=== PATIENT | male | born 1945 | race Caucasian/White ===

== ENCOUNTER 2017-01-26 09:59 | Outpatient (CLI) | payer BC | END 2017-01-26 10:00 | disposition home or self-care (01) | LOC: LAB.WCP 09:59 | PROVIDERS: ATTEND Family Medicine | DX: E03.9 Hypothyroidism, unspecified (principal) | CPT/HCPCS: 36415; 84443 ==

== ENCOUNTER 2017-05-02 08:00 | Outpatient (CLI) | payer BC | END 2017-05-02 08:01 | disposition home or self-care (01) | LOC: LAB.WCP 08:00 | PROVIDERS: ATTEND Family Medicine | DX: N40.1 Benign prostatic hyperplasia with lower urinary tract symptoms (principal) | CPT/HCPCS: 36415; 84153 ==

== ENCOUNTER 2017-05-05 10:20 | Outpatient (CLI) | payer BC ==
[2017-05-05 13:04] LABS: BILIRUBIN,URINE NEGATIVE (NEGATIVE); GLUCOSE, URINE (UA) NEGATIVE (NEGATIVE); KETONES,URINE (UA) NEGATIVE (NEGATIVE); LEUKOCYTE ESTERASE, URINE NEGATIVE (NEGATIVE); NITRITE,URINE NEGATIVE (NEGATIVE); OCCULT BLOOD,URINE TRACE-LYSE (NEGATIVE); PROTEIN,URINE NEGATIVE (NEGATIVE); UROBILINOGEN,URINE 0.2 (NORMAL) E.U./dL (NORMAL)
[2017-05-05 13:08] LABS: PSA FREE 0.59 ng/mL (0.16-2.81)
[2017-05-05 13:09] LABS: PSA TOTAL 1.68 ng/mL (0.000-2.000)
[2017-05-05 13:12] LABS: BACTERIA,URINE Rare /HPF (None Seen); CLARITY,URINE CLEAR (CLEAR); MUCUS,URINE Moderate Strands; RBC,URINE 0-5 /HPF (0-5); SQUAMOUS EPITHELIAL CELL,UR FEW Squamous (<= Few)
[2017-05-05 13:22] LABS: ALBUMIN/GLOBULIN RATIO 1.4 (1.0-2.2); ALKALINE PHOSPHATASE 53 IU/L (42-121); ALT ALANINE AMINOTRANSFERASE 15 IU/L (10-60); AST ASPARTATE AMINOTRANSFERASE 23 IU/L (10-42); BILIRUBIN,TOTAL 0.8 mg/dL (0.2-1.0); BUN - BLOOD UREA NITROGEN 16 mg/dL (6-20); CALCIUM 9.2 mg/dL (8.5-10.3); CARBON DIOXIDE - CO2 26 mmol/L (21-32); CHLORIDE 105 mmol/L (101-111); CHOLESTEROL 160 mg/dL; GFR - MDRD 74 (>89); GLUCOSE 90 mg/dL (70-100); HDL CHOLESTEROL 54 mg/dL; LDL CHOLESTEROL,CALCULATED 91 mg/dL; LDL/HDL RATIO 1.7 (<3.6); SODIUM 136 mmol/L (135-145); TOTAL PROTEIN 6.8 g/dL (6.7-8.2); VLDL CHOLESTEROL 15 mg/dL
== END 2017-05-05 10:21 | disposition home or self-care (01) ==
LOC: LAB.WCP 10:20
PROVIDERS: ATTEND Family Medicine
DX: N40.1 Benign prostatic hyperplasia with lower urinary tract symptoms (principal); I25.10 Atherosclerotic heart disease of native coronary artery without angina pectoris; E03.9 Hypothyroidism, unspecified; E78.5 Hyperlipidemia, unspecified
CPT/HCPCS: 36415; 80053; 80061; 81001; 83721; 84154; 84443

== ENCOUNTER 2017-12-19 14:15 | Outpatient (CLI) | payer BC ==
[2017-12-19 19:54] LABS: BASOPHILS % (AUTO) 0.5 %; EOSINOPHILS # (AUTO) 0.1 10^3/uL (0.0-0.7); EOSINOPHILS % (AUTO) 1.8 %; HGB - HEMOGLOBIN 12.4 g/dL (14.0-18.0); LYMPHOCYTES # (AUTO) 2.2 10^3/uL (1.5-3.5); LYMPHOCYTES % (AUTO) 27.4 %; MEAN CORPUSCULAR HEMOGLOBIN 32.9 pg (27.0-31.0); MEAN CORPUSCULAR HGB CONC 34.4 g/dL (32.0-36.0); MEAN CORPUSCULAR VOLUME 95.5 fL (80.0-94.0); MEAN PLATELET VOLUME 8.6 fL (7.4-11.4); MONOCYTES # (AUTO) 0.7 10^3/uL (0.0-1.0); MONOCYTES % (AUTO) 8.6 %; NEUTROPHILS % (AUTO) 61.7 %; PLT - PLATELET COUNT 178 10^3/uL (130-450); RED BLOOD COUNT 3.76 10^6/uL (4.70-6.10); RED CELL DISTRIBUTION WIDTH 14.4 % (12.0-15.0); WHITE BLOOD COUNT 8.1 x10^3/uL (4.8-10.8)
[2017-12-20 17:23] LABS: % IRON SATURATION 25 % (20-50); IRON 91 ug/dL (45-182); TOTAL IRON BINDING CAPACITY 364 ug/dL (250-450); TRANSFERRIN 260 mg/dL (180-329)
== END 2017-12-19 14:16 | disposition home or self-care (01) ==
LOC: LAB.WCP 14:15
PROVIDERS: ATTEND Family Medicine
DX: K14.6 Glossodynia (principal); D64.9 Anemia, unspecified
CPT/HCPCS: 36415; 82607; 82728; 82746; 83540; 84466; 85025

== ENCOUNTER 2019-07-22 08:00 | Outpatient (CLI) | payer BC ==
[2019-07-22 13:21] LABS: BASOPHILS % (AUTO) 0.4 %; EOSINOPHILS # (AUTO) 0.1 10^3/uL (0.0-0.7); EOSINOPHILS % (AUTO) 1.5 %; HGB - HEMOGLOBIN 13.2 g/dL (14.0-18.0); LYMPHOCYTES # (AUTO) 1.7 10^3/uL (1.5-3.5); LYMPHOCYTES % (AUTO) 23.1 %; MEAN CORPUSCULAR HGB CONC 32.2 g/dL (32.0-36.0); MEAN CORPUSCULAR VOLUME 99.3 fL (80.0-94.0); MEAN PLATELET VOLUME 10.6 fL (7.4-11.4); MONOCYTES # (AUTO) 0.7 10^3/uL (0.0-1.0); MONOCYTES % (AUTO) 9.5 %; NEUTROPHILS # (AUTO) 4.7 10^3/uL (1.5-6.6); NEUTROPHILS % (AUTO) 65.1 %; PLT - PLATELET COUNT 175 10^3/uL (130-450); RED BLOOD COUNT 4.13 10^6/uL (4.70-6.10); RED CELL DISTRIBUTION WIDTH 14.2 % (12.0-15.0); WHITE BLOOD COUNT 7.2 x10^3/uL (4.8-10.8)
[2019-07-22 13:46] LABS: ALBUMIN 3.9 g/dL (3.2-5.5); ALBUMIN/GLOBULIN RATIO 1.3 (1.0-2.2); ALKALINE PHOSPHATASE 56 IU/L (42-121); ALT ALANINE AMINOTRANSFERASE 14 IU/L (10-60); AST ASPARTATE AMINOTRANSFERASE 20 IU/L (10-42); BILIRUBIN,TOTAL 0.7 mg/dL (0.2-1.0); BUN - BLOOD UREA NITROGEN 22 mg/dL (6-20); CALCIUM 9.3 mg/dL (8.5-10.3); CARBON DIOXIDE - CO2 27 mmol/L (21-32); CHLORIDE 104 mmol/L (101-111); CHOL/HDL RATIO 3.3 (<5.0); CHOLESTEROL 170 mg/dL; CREATININE 0.9 mg/dL (0.6-1.2); GLUCOSE 63 mg/dL (70-100); HDL CHOLESTEROL 51 mg/dL; LDL CHOLESTEROL,CALCULATED 107 mg/dL; LDL/HDL RATIO 2.1 (<3.6); SODIUM 137 mmol/L (135-145); TOTAL PROTEIN 6.8 g/dL (6.7-8.2); VLDL CHOLESTEROL 12 mg/dL
== END 2019-07-22 23:59 | disposition home or self-care (01) ==
LOC: LAB.WCP 08:00
PROVIDERS: ATTEND Physician Assistant Medical
DX: I25.10 Atherosclerotic heart disease of native coronary artery without angina pectoris (principal); E78.5 Hyperlipidemia, unspecified; Z12.5 Encounter for screening for malignant neoplasm of prostate
CPT/HCPCS: 36415; 80053; 80061; 83721; 84153; 84443; 85025

== ENCOUNTER 2019-08-27 14:02 | Outpatient (CLI) | payer BC | END 2019-08-27 14:03 | disposition home or self-care (01) | LOC: COV 14:02 | PROVIDERS: ATTEND Ophthalmology | DX: Z01.812 Encounter for preprocedural laboratory examination (principal); H25.9 Unspecified age-related cataract | CPT/HCPCS: 81599 ==

== ENCOUNTER 2019-08-29 07:24 | Day surgery (SDC) | payer BC ==
[~2019-08-29 07:24] MED LIST: BRIMONIDINE 0.2% OPHTH DROPS 5 ML ONE; BSS/LIDOCAINE/EPINEPHRINE 1 ML SYRINGE ONE; CYCLOPENTOLATE 1% OPHTH DROPS 2 ML ONE; KETOROLAC 0.45% OPHTH DROPS ONE; PHENYLEPHRINE 2.5% OPHTH 2 ML DROPS ONE; PROPARACAINE 0.5% OPHTH DROPS 15 ML ONE; TRIAMCIN/MOXIFLOX OPHTHALMIC 0.6 ML VIAL IO ONE; VANCOMYCIN OPHTHALMI 8MG/0.8ML 8 MG/0.8 ML SYRINGE IO ONE; timoloL maleate 0.5% OPHTH DROPS (10ML) ONE
[2019-08-29] MEDS ORDERED: LACTATED RINGERS 500 ML IV ONE (07:27)
--- NOTE | 2019-08-29 07:34 | ANESTHESIA ---
Pre-Anesthesia VS, & Labs - Diagnosis L senile cataract - Procedure L extraction cataract with IOL Vital Signs: Temp Pulse Resp BP Pulse Ox 36.2 C L 65 20 101/90 H 99 08/29/19 07:21 08/29/19 07:21 08/29/19 07:21 08/29/19 07:21 08/29/19 07:21 Height 5 ft 10.5 in Weight (kg) 76 kg - NPO >8 hours Home Medications and Allergies Latanoprost 0.005% Ophth Drops [Xalatan Ophth Drops] 1 drops OPTH QPM 03/19/14 Levothyroxine [Synthroid] 112 mcg PO QDAC 03/19/14 Metoprolol Succinate 25 mg PO DAILY 03/19/14 Multivit-Min/FA/Lycopene/Lut [Centrum Silver Tablet] 1 each PO DAILY 03/19/14 Simvastatin [Zocor] 40 mg PO DAILY 03/19/14 Timolol 0.25% Ophth Drops [Timoptic 0.25% Ophth Drops] 1 drops OPTH BID 03/19/14 Allergies/Adverse Reactions: Allergies Allergy/AdvReac Type Severity Reaction Status Date / Time No Known Drug Allergies Allergy Verified 03/20/14 08:44 Anes History & Medical History - Anesthetic History Anesthesia Complications: reports: No previous complications Family history of Anesthesia Complications: Denies Family history of Malignant Hyperthermia: Denies - Medical History Cardiovascular: reports: None Pulmonary: reports: None Gastrointestinal: reports: None Urinary: reports: Benign prostate hypertrophy, Nocturia Musculoskeletal: reports: None Endocrine/Autoimmune: reports: None Skin: reports: Psoriasis Smoking Status: Current every day smoker - Surgical History General: Colonoscopy Eyes Ears Nose Throat (EENT): Cataracts Exam General: Alert, Oriented x3, Cooperative Dental: Partials Upper Mouth Openin Fingerbreadth Neck Mobility: Normal Mallampati classification: II Thyromental Distance: greater than 6 cm Respiratory: Lungs clear, Normal breath sounds Cardiovascular: Regular rate Mental/Cognitive Status: Alert/Oriented X3, Normal for patient Cognitive Status: Within normal limits Plan Anesthesia Type: MAC Consent for Procedure(s) Verified and Reviewed: Yes Code Status: Attempt Resuscitation ASA classification: 2-Mild systemic disease Is this case an emergency?: No
[2019-08-29] MEDS ORDERED: LACTATED RINGERS 1,000 ML IV ONE (08:14)
[2019-08-29] MEDS ORDERED: BRIMONIDINE 0.2% OPHTH DROPS 5 ML OPTH ONE (08:17)
[2019-08-29] MEDS ORDERED: CHONDR SULF/HYALURONATE SYRINGE IO ONE (08:17)
[2019-08-29] MEDS ORDERED: EPINEPHrine 1 MG/ML AMP IVP ONE (08:17)
[2019-08-29] MEDS ORDERED: TIMOLOL 0.5% OPHTH DROPS OPTH ONE (08:18)
[2019-08-29] MEDS ORDERED: VANCOMYCIN OPHTHALMI 8MG/0.8ML 8 MG/0.8 ML SYRINGE IO ONE (08:18)
[2019-08-29] MEDS ORDERED: TRIAMCIN/MOXIFLOX OPHTHALMIC 0.6 ML VIAL IO ONE (08:18)
[2019-08-29] MEDS ORDERED: BSS/LIDOCAINE/EPINEPHRINE 1 ML SYRINGE IO ONE (08:18)
[2019-08-29 08:33] VITALS: BP 115/65
--- NOTE | 2019-08-29 09:40 | OPERATIVE REPORT ---
DATE OF SERVICE: 08/29/2019 Physician: Juanito Us MD PREOPERATIVE DIAGNOSIS: Visually significant cataract, left eye. Cataract surgery was performed on the right eye on 03/06/2014. POSTOPERATIVE DIAGNOSIS: Visually significant cataract, left eye. Cataract surgery was performed on the right eye on 03/06/2014. PROCEDURE: Phacoemulsification with posterior chamber intraocular lens implant, left eye. SURGEON: Juanito Us MD ANESTHESIA: Monitored anesthesia care. COMPLICATIONS: None. OPERATIVE INDICATIONS: This is a 74-year-old man with progressive vision loss in the left eye due to 3+ nuclear sclerotic, 1-2+ posterior subcapsular and vacuolar cataract. Best corrected visual acuit y was 20/50, with glare to 20/400 in the left eye. Indications for surgery are overall decrease in v ision, difficulty seeing street signs, difficulty driving in low light or at night, difficulty drivin g at night because lights from other vehicles and/or street lights. He was consented at length jane rning risks and benefits of cataract surgery, after which he expressed a desire to proceed with surge ry. OPERATIVE PROCEDURE: Patient was taken to OR #3 and placed under monitored anesthesia care. A surgi zo timeout was conducted confirming correct patient, correct procedure, and correct surgical site. He was given topical anesthesia, and prepped and draped in the usual sterile fashion. The eye was en tered at the 6 and 3 o'clock positions. Intracameral Shugarcaine was injected into the anterior georges ronaldo, followed by Viscoat. A continuous-tear curvilinear capsulorrhexis was performed. The nucleus w as hydrodissected and phacoemulsified. Cortex was evacuated using automated infusion and aspiration. Provisc was injected in the capsular bag, and a 19.5 diopter intraocular lens inserted in the bag. Infusion and aspiration was used to evacuate the viscoelastic materials. The eye was inflated to ph ysiologic pressure using balanced salt solution and found to be watertight. Approximately 0.25 mL of a mixture of triamcinolone, moxifloxacin was injected transsclerally into the vitreous in the infero temporal quadrant. An additional 0.55 mL of a mixture of triamcinolone, moxifloxacin and vancomycin was injected subconjunctivally in the superior quadrant for infection and inflammation prophylaxis. Wound integrity was checked with Weck-Claudette sponges. Patient was taken from the operating room in good condition and given postoperative instructions. TD: 08/29/2019 08:19
== END 2019-08-29 07:25 | disposition home or self-care (01) ==
LOC: SDS 07:24
PROVIDERS: ATTEND Ophthalmology
DX: H25.812 Combined forms of age-related cataract, left eye (principal); I10 Essential (primary) hypertension; E03.9 Hypothyroidism, unspecified; H35.3130 Nonexudative age-related macular degeneration, bilateral, stage unspecified; N40.1 Benign prostatic hyperplasia with lower urinary tract symptoms; R35.1 Nocturia; Z98.41 Cataract extraction status, right eye; Z79.899 Other long term (current) drug therapy
CPT/HCPCS: 66984; A9270; J3490; J7120; V2632

== ENCOUNTER 2019-12-28 16:27 | Outpatient (CLI) | payer BC ==
--- NOTE | 2019-12-28 18:42 | Ultrasound Report ---
PROCEDURE: Retroperitoneal INDICATIONS: KIDNEY MASS TECHNIQUE: Real-time scanning was performed of the retroperitoneal organs, with image documentation. COMPARISON: None. FINDINGS: Kidneys: Kidneys are normal in size. Right kidney measures 10.9 cm long; left kidney measures 10.4 cm long. Right renal cortical thickness is 1.2 cm; left renal cortical thickness is 1 cm. No solid masses, hydronephrosis, or nephrolithiasis. Bilateral simple appearing renal cysts are seen. The largest is seen on the right measuring 3.5 x 2.9 x 2.8 cm. The prevoid bladder volume is 87 cc. The post void bladder volume is 30 cc. Both ureteral jets can be seen. Miscellaneous: No free abdominal fluid. The prostate measures up to 5 cm. Calcifications can be see n within the prostate. IMPRESSION: Simple appearing renal cysts, without suspicious solid masses involving either kidney. No hydronephrosis is seen on either side. Reviewed by: Javi Handley MD on 12/28/2019 5:41 PM ADELA Approved by: Javi Handley MD on 12/28/2019 5:41 PM ADELA Station ID: [id number]
== END 2019-12-28 16:28 | disposition home or self-care (01) ==
LOC: DI 16:27
PROVIDERS: ATTEND Physician Assistant Medical
DX: N28.1 Cyst of kidney, acquired (principal)
CPT/HCPCS: 76770

== ENCOUNTER 2020-01-08 07:55 | Outpatient (CLI) | payer BC ==
--- NOTE | 2020-01-08 16:53 | XRAY Report ---
PROCEDURE: Shoulder 3 View RT INDICATIONS: RIGHT SHOULDER IMPINGEMENT SYNDROME TECHNIQUE: 3 views of the shoulder were acquired. COMPARISON: None. FINDINGS: Bones: No fractures or dislocations. There is moderate acromioclavicular joint degeneration includin g inferior osteophytosis. No suspicious bony lesions. Visualized ribs appear intact. Soft tissues: No suspicious soft tissue calcifications. IMPRESSION: 1. Moderate acromioclavicular joint generation. Reviewed by: Yosi Christianson MD on 01/08/2020 3:52 PM AKDT Approved by: Yosi Christianson MD on 01/08/2020 3:52 PM AKDT Station ID: [id number]
== END 2020-01-08 07:56 | disposition home or self-care (01) ==
LOC: DI.WCP 07:55
PROVIDERS: ATTEND Physician Assistant Medical
DX: M19.011 Primary osteoarthritis, right shoulder (principal)

== ENCOUNTER 2020-03-30 16:40 | Outpatient (CLI) | payer BC | END 2020-03-30 23:59 | disposition home or self-care (01) | LOC: LAB.R 16:40 | PROVIDERS: ATTEND Family Medicine | DX: R31.9 Hematuria, unspecified (principal) | CPT/HCPCS: 87086 ==

== ENCOUNTER 2020-08-28 08:47 | Outpatient (CLI) | payer BC ==
[2020-08-28 12:05] LABS: BASOPHILS % (AUTO) 0.5 %; EOSINOPHILS # (AUTO) 0.2 10^3/uL (0.0-0.7); HCT - HEMATOCRIT 44.2 % (42.0-52.0); HGB - HEMOGLOBIN 14.7 g/dL (14.0-18.0); LYMPHOCYTES # (AUTO) 1.9 10^3/uL (1.5-3.5); LYMPHOCYTES % (AUTO) 24.6 %; MEAN CORPUSCULAR HEMOGLOBIN 32.3 pg (27.0-31.0); MEAN CORPUSCULAR HGB CONC 33.3 g/dL (32.0-36.0); MEAN CORPUSCULAR VOLUME 97.1 fL (80.0-94.0); MEAN PLATELET VOLUME 9.9 fL (7.4-11.4); MONOCYTES # (AUTO) 0.8 10^3/uL (0.0-1.0); MONOCYTES % (AUTO) 9.6 %; NEUTROPHILS # (AUTO) 4.9 10^3/uL (1.5-6.6); NEUTROPHILS % (AUTO) 62.9 %; PLT - PLATELET COUNT 170 10^3/uL (130-450); RED BLOOD COUNT 4.55 10^6/uL (4.70-6.10); RED CELL DISTRIBUTION WIDTH 13.5 % (12.0-15.0); WHITE BLOOD COUNT 7.9 x10^3/uL (4.8-10.8)
[2020-08-28 12:17] LABS: ALBUMIN 4.2 g/dL (3.2-5.5); ALBUMIN/GLOBULIN RATIO 1.5 (1.0-2.2); ALKALINE PHOSPHATASE 56 IU/L (42-121); ALT ALANINE AMINOTRANSFERASE 17 IU/L (10-60); AST ASPARTATE AMINOTRANSFERASE 19 IU/L (10-42); BILIRUBIN,TOTAL 0.7 mg/dL (0.2-1.0); BUN - BLOOD UREA NITROGEN 18 mg/dL (6-20); CALCIUM 9.5 mg/dL (8.5-10.3); CARBON DIOXIDE - CO2 28 mmol/L (21-32); CHLORIDE 103 mmol/L (101-111); CHOL/HDL RATIO 3.3 (<5.0); CHOLESTEROL 197 mg/dL; CREATININE 1.1 mg/dL (0.6-1.2); GFR - MDRD 66 (>89); GLUCOSE 102 mg/dL (70-100); HDL CHOLESTEROL 60 mg/dL; LDL CHOLESTEROL,CALCULATED 122 mg/dL; SODIUM 137 mmol/L (135-145); TRIGLYCERIDES 76 mg/dL; VLDL CHOLESTEROL 15 mg/dL
[2020-08-28 12:26] LABS: THYROID STIMULATING HORMONE 12.78 uIU/mL (0.34-5.60)
[2020-08-28 12:59] LABS: FREE T4 (FREE THYROXINE) 0.88 ng/dL (0.58-1.64)
== END 2020-08-28 08:48 | disposition home or self-care (01) ==
LOC: LAB.N 08:47
PROVIDERS: ATTEND Physician Assistant Medical
DX: I25.10 Atherosclerotic heart disease of native coronary artery without angina pectoris (principal); E03.9 Hypothyroidism, unspecified; D64.9 Anemia, unspecified
CPT/HCPCS: 36415; 80053; 80061; 83721; 84439; 84443; 85025

== ENCOUNTER 2020-09-15 08:09 | Outpatient (CLI) | payer BC ==
--- NOTE | 2020-09-15 09:42 | Ultrasound Report ---
PROCEDURE: Aorta Screening INDICATIONS: TOBACCO ABUSE TECHNIQUE: Real time scanning was performed of the aorta and iliac arteries, with image documentatio n. COMPARISON: None available. FINDINGS: Aorta: Proximal aortic diameter measures 2.7 x 2.3 cm. Mid-aorta measures 1.9 x 2.0 cm. Distal abd ominal aorta is aneurysmal measuring 3.6 x 3.8 cm. There is mural thrombus within the aneurysm. Iliac arteries: Right common iliac artery measures 1.2 x 1.4 cm. Left common iliac artery measures 1.3 x1.7 cm. IMPRESSION: Mild distal abdominal aortic aneurysm measuring 3.8 cm. Recommend follow-up sonogram in one year. Reviewed by: Janes Dior MD on 09/15/2020 9:41 AM PDT Approved by: Janes Dior MD on 09/15/2020 9:41 AM PDT Station ID: [id number]
== END 2020-09-15 08:10 | disposition home or self-care (01) ==
LOC: DI 08:09
PROVIDERS: ATTEND Physician Assistant Medical
DX: Z13.6 Encounter for screening for cardiovascular disorders (principal); I71.4 Abdominal aortic aneurysm, without rupture; F17.200 Nicotine dependence, unspecified, uncomplicated

== ENCOUNTER 2020-09-15 08:11 | Outpatient (CLI) | payer BC ==
--- NOTE | 2020-09-24 16:32 | CT Report ---
PROCEDURE: Low Dose Lung Cancer Screen INDICATIONS: TOBACCO ABUSE TECHNIQUE: Noncontrast low-dose 5 mm thick sections acquired from the pulmonary apices to the posterior costophr enic angles. 7 mm thick coronal and sagittal MIP reformats were then acquired. For radiation dose r eduction, the following was used: automated exposure control, adjustment of mA and/or kV according t o patient size. COMPARISON: CT chest 12/06/2019. FINDINGS: Image quality: Diagnostic given low radiation dose. Lungs and pleura: Small right middle lobe perifissural nodule along the minor fissure measuring up t o 7 mm on series 4 image 193 appears unchanged. Mild dependent atelectasis is present bilaterally. Mediastinum: Heart size is normal. No pericardial effusion. There is moderate severe coronary arter ial vascular calcification. No mediastinal adenopathy by size criteria. Thoracic aorta and central p ulmonary arteries are normal in size. Esophagus is normal in caliber. No hiatal hernia. Bones and chest wall: No suspicious bony lesions. No vertebral body compression fractures. No axil aimee or supraclavicular adenopathy by size criteria. The thyroid is normal in size and there are no incidental findings. Abdomen: Visualized upper abdomen redemonstrates multiple right parapelvic cysts within the partiall y visualized right kidney. IMPRESSION: 1. Stable right middle lobe perifissural nodule measuring up to 7 mm. Lung RADS 3: Recommend follow-up low-dose CT in 6 months to demonstrate stability. Reviewed by: Yosi Christianson MD on 09/15/2020 10:18 AM PDT Approved by: Yosi Christianson MD on 09/15/2020 10:18 AM PDT Station ID: [id number]
== END 2020-09-15 08:12 | disposition home or self-care (01) ==
LOC: DI 08:11
PROVIDERS: ATTEND Physician Assistant Medical
DX: Z12.2 Encounter for screening for malignant neoplasm of respiratory organs (principal); R91.1 Solitary pulmonary nodule; F17.210 Nicotine dependence, cigarettes, uncomplicated; I71.4 Abdominal aortic aneurysm, without rupture; F17.200 Nicotine dependence, unspecified, uncomplicated; Z13.6 Encounter for screening for cardiovascular disorders

== ENCOUNTER 2020-12-19 09:50 | Outpatient (CLI) | payer BC ==
[2020-12-19] MEDS ORDERED: IOVERSOL 320 50 ML VIAL ONE (09:56)
[2020-12-19] MEDS ORDERED: IOPAMIDOL-300 100 ML VIAL ONE (09:56)
[2020-12-19 10:19] LABS: CREATININE 1.1 mg/dL (0.6-1.2)
[2020-12-19] MEDS ORDERED: IOPAMIDOL-300 100 ML VIAL IVP ONE (11:19)
[2020-12-19] MEDS ORDERED: IOVERSOL 320 50 ML VIAL PO ONE (11:20)
--- NOTE | 2020-12-19 12:04 | CT Report ---
PROCEDURE: Abdomen/Pelvis W INDICATIONS: ABDOMINAL PAIN CONTRAST: IV CONTRAST: Isovue 300 ml: 100 PO CONTRAST: Optiray 320 ml50 TECHNIQUE: After the administration of oral and IV contrast, 5 mm thick sections acquired from the diaphragms to the symphysis. 5 mm thick coronal and sagittal reformats were acquired. For radiation dose reducti on, the following was used: automated exposure control, adjustment of mA and/or kV according to mckenzie ent size. COMPARISON: Correlation is made with aorta ultrasound, 09/15/2020 FINDINGS: Image quality: Excellent. ABDOMEN: Lung bases: Lung bases are clear. Heart size is normal. Solid organs: Liver and spleen are normal in size and enhancement. Gallbladder wall does not appear thickened. Biliary system is non dilated. Pancreas enhances normally. No adrenal nodules. Kidneys demonstrate normal size and enhancement, without hydronephrosis. Right renal cysts are seen, including a simple appearing water density medial cyst that measures up to 4.3 cm craniocaudal. Subc entimeter likely left renal cysts are also seen. Peritoneum and bowel: Bowel loops demonstrate normal wall thickness and caliber. No free fluid or a ir. The cecum is located superiorly and medially. A normal appendix is incidentally noted. Nodes and vessels: No retroperitoneal or mesenteric adenopathy by size criteria. The IVC demonstrate s normal size. The distal aorta measures up to 3.8 cm AP by 3.7 cm transversely. There is moderate mu ral thrombus seen. This appears stable from the recent prior ultrasound. Miscellaneous: No ventral hernias. PELVIS: Genitourinary: Bladder wall thickness is normal. Miscellaneous: No inguinal adenopathy. There is a mild fat-containing right inguinal hernia. Bones: No suspicious bony lesions. No vertebral body compression fractures. Degenerative changes a re seen throughout, which are worst at L1-L2 and at L5-S1. Mild levoconvex scoliotic curvature is see n. IMPRESSION: A cause of abdominal pain is not identified. Mild distal abdominal aortic aneurysm seen measuring 3.8 cm AP. Ultrasound follow-up in 1 year is rec ommended. Incidental note is made of: Simple appearing bilateral renal cysts, right more prominent than left Cecum seen located medially and superiorly. Normal appendix Levoconvex scoliotic curvature Lumbar spine degenerative change Mild fat-containing right inguinal hernia Reviewed by: Javi Handley MD on 12/19/2020 11:02 AM ADELA Approved by: Javi Handley MD on 12/19/2020 11:02 AM ADELA Station ID: [id number]
== END 2020-12-19 09:51 | disposition home or self-care (01) ==
LOC: LAB 09:50
PROVIDERS: ATTEND Surgery
DX: R10.9 Unspecified abdominal pain (principal); I71.4 Abdominal aortic aneurysm, without rupture
CPT/HCPCS: 36415; 74177; 82565; Q9967

== ENCOUNTER 2020-12-23 08:00 | Outpatient (CLI) | payer BC | END 2020-12-23 23:59 | disposition home or self-care (01) | LOC: LAB.N 08:00 | PROVIDERS: ATTEND Family Medicine | DX: R30.0 Dysuria (principal) | CPT/HCPCS: 87086 ==

== ENCOUNTER 2021-04-22 08:00 | Outpatient (CLI) | payer BC ==
[2021-04-22 17:55] LABS: BASOPHILS % (AUTO) 0.5 %; EOSINOPHILS # (AUTO) 0.1 10^3/uL (0.0-0.7); EOSINOPHILS % (AUTO) 1.3 %; HCT - HEMATOCRIT 43.1 % (42.0-52.0); HGB - HEMOGLOBIN 14.6 g/dL (14.0-18.0); LYMPHOCYTES # (AUTO) 1.7 10^3/uL (1.5-3.5); LYMPHOCYTES % (AUTO) 22.1 %; MEAN CORPUSCULAR HGB CONC 33.9 g/dL (32.0-36.0); MEAN CORPUSCULAR VOLUME 97.3 fL (80.0-94.0); MEAN PLATELET VOLUME 10.2 fL (7.4-11.4); MONOCYTES # (AUTO) 0.7 10^3/uL (0.0-1.0); MONOCYTES % (AUTO) 8.3 %; NEUTROPHILS # (AUTO) 5.3 10^3/uL (1.5-6.6); NEUTROPHILS % (AUTO) 67.4 %; PLT - PLATELET COUNT 181 10^3/uL (130-450); RED BLOOD COUNT 4.43 10^6/uL (4.70-6.10); RED CELL DISTRIBUTION WIDTH 13.7 % (12.0-15.0); WHITE BLOOD COUNT 7.8 x10^3/uL (4.8-10.8)
[2021-04-22 18:05] LABS: ALBUMIN/GLOBULIN RATIO 1.3 (1.0-2.2); ALKALINE PHOSPHATASE 50 IU/L (42-121); ALT ALANINE AMINOTRANSFERASE 21 IU/L (10-60); AST ASPARTATE AMINOTRANSFERASE 24 IU/L (10-42); BILIRUBIN,TOTAL 0.8 mg/dL (0.2-1.0); BUN - BLOOD UREA NITROGEN 18 mg/dL (6-20); CALCIUM 9.6 mg/dL (8.5-10.3); CARBON DIOXIDE - CO2 27 mmol/L (21-32); CHLORIDE 100 mmol/L (101-111); CHOL/HDL RATIO 2.5 (<5.0); CHOLESTEROL 153 mg/dL; CREATININE 1.1 mg/dL (0.6-1.2); GFR - MDRD 65 (>89); GLUCOSE 92 mg/dL (70-100); HDL CHOLESTEROL 62 mg/dL; LDL CHOLESTEROL,CALCULATED 76 mg/dL; LDL/HDL RATIO 1.2 (<3.6); POTASSIUM 4.1 mmol/L (3.5-5.0); SODIUM 135 mmol/L (135-145); TOTAL PROTEIN 7.1 g/dL (6.7-8.2); TRIGLYCERIDES 77 mg/dL; VLDL CHOLESTEROL 15 mg/dL
[2021-04-22 18:53] LABS: BILIRUBIN,URINE NEGATIVE (NEGATIVE); GLUCOSE, URINE (UA) NEGATIVE (NEGATIVE); KETONES,URINE (UA) NEGATIVE (NEGATIVE); LEUKOCYTE ESTERASE, URINE NEGATIVE (NEGATIVE); NITRITE,URINE NEGATIVE (NEGATIVE); OCCULT BLOOD,URINE TRACE-INTA (NEGATIVE); PH,URINE 5.5 PH (5.0-7.5); PROTEIN,URINE NEGATIVE (NEGATIVE); UROBILINOGEN,URINE 0.2 (NORMAL) E.U./dL (NORMAL)
[2021-04-22 19:22] LABS: ESTIMATED AVERAGE GLUCOSE 126 mg/dL (70-100)
[2021-04-22 19:23] LABS: BACTERIA,URINE None Seen /HPF (None Seen); CLARITY,URINE CLEAR (CLEAR); RBC,URINE None Seen /HPF (0-5); SQUAMOUS EPITHELIAL CELL,UR NONE SEEN (<= Few); WBC,URINE 0-3 /HPF (0-3)
== END 2021-04-22 23:59 | disposition home or self-care (01) ==
LOC: LAB.WCP 08:00
PROVIDERS: ATTEND Nurse Practitioner
DX: R35.89 Other polyuria (principal)
CPT/HCPCS: 36415; 80053; 80061; 81001; 83036; 83721; 84153; 85025; 87086

== ENCOUNTER 2021-08-25 15:36 | Emergency (ER) | payer BC ==
--- NOTE | 2021-08-25 16:15 | ED Physician Documentation ---
PD HPI MALE - Stated complaint Stated Complaint: UNABLE TO URINATE - Chief complaint Chief Complaint: Abd Pain - History obtained from History obtained from: Patient (76-year-old gentleman often has some urinary frequency and hesitancy. This afternoon he was unable to urinate. Subsequently upon arrival to the hospital he was able to urinate. No history of diagnosis of urinary retention or prostatic hypertrophy.) Review of Systems Constitutional: reports: Reviewed and negative Ears: reports: Reviewed and negative Cardiac: reports: Reviewed and negative Respiratory: reports: Reviewed and negative PD PAST MEDICAL HISTORY - Past Medical History Cardiovascular: High cholesterol, Angina Respiratory: None Endocrine/Autoimmune: HyPOthyroidism GI: None : Frequency HEENT: Glaucoma Psych: Depression Musculoskeletal: None Derm: None - Past Surgical History General: Colonoscopy - Present Medications Home Medications: Ambulatory Orders Medication Instructions Recorded Confirmed Latanoprost 0.005% Ophth Drops 1 drops OPTH QPM 03/19/14 08/25/21 [Xalatan Ophth Drops] Levothyroxine [Synthroid] 112 mcg PO QDAC 03/19/14 08/25/21 Metoprolol Succinate 25 mg PO DAILY 03/19/14 08/25/21 Multivit-Min/FA/Lycopene/Lut 1 each PO DAILY 03/19/14 08/28/19 [Centrum Silver Tablet] Timolol 0.25% Ophth Drops 1 drops OPTH BID 03/19/14 08/25/21 [Timoptic 0.25% Ophth Drops] Finasteride [Proscar] 1 tablet ORAL DAILY 08/25/21 08/25/21 Rosuvastatin Calcium [Crestor] 1 tablet ORAL DAILY 08/25/21 08/25/21 Tamsulosin HCl [Flomax] 1 tablet ORAL DAILY 08/25/21 08/25/21 Tamsulosin [Flomax] 0.4 mg PO DAILY #30 cap 08/25/21 - Allergies Allergies/Adverse Reactions: Allergies Allergy/AdvReac Type Severity Reaction Status Date / Time No Known Drug Allergies Allergy Verified 08/25/21 15:47 - Social History Smoking Status: Current every day smoker PD ED PE NORMAL - Vitals Vital signs reviewed: Yes - General General: Alert and oriented X 3, No acute distress - Abdomen Abdomen: Non tender, Other (No suprapubic tenderness or palpable bladder. I did a bedside bladder scan which read 18 mL.) - Neuro Neuro: Alert and oriented X 3, Normal speech Results - Vitals Vitals: Vital Signs - 24 hr 08/25/21 08/25/21 15:40 16:18 Temperature 36.7 C Heart Rate 65 62 Respiratory 14 16 Rate Blood Pressure 148/75 H 154/136 H O2 Saturation 97 98 Oxygen O2 Source Room air - Labs Labs: Laboratory Tests 08/25/21 16:18 Sodium 135 Potassium 3.8 Chloride 104 Carbon Dioxide 24 Anion Gap 7.0 BUN 18 Creatinine 1.1 Estimated GFR (MDRD) 65 L Glucose 102 H Calcium 9.1 PD MEDICAL DECISION MAKING - ED course ED course: 76-year-old gentleman with sensation of inability to urinate prehospital but when he got to the hospital he was able to urinate without issue and his bladder scan here is unremarkable. Renal function checked and good. Will start on Flomax. Departure - Departure Disposition: 01 Home, Self Care Clinical Impression: Urinary retention Condition: Good Record reviewed to determine appropriate education?: Yes Instructions: ED Retention Urinary Male Prescriptions: Tamsulosin [Flomax] 0.4 mg PO DAILY #30 cap Comments: You are seen today for inability to urinate, thankfully that was transient. This is most likely due to enlarged prostate and I am prescribing something for that. Your kidney function is excellent. Return if you are unable to urinate. Follow-up with your primary care physician, next available appointment.
[2021-08-25 16:19] VITALS: BP 154/136
[2021-08-25 16:33] LABS: CALCIUM 9.1 mg/dL (8.5-10.3); CREATININE 1.1 mg/dL (0.6-1.2); POTASSIUM 3.8 mmol/L (3.5-5.0)
== END 2021-08-25 17:11 | disposition home or self-care (01) ==
LOC: ED 15:36
DX: R33.9 Retention of urine, unspecified (principal); F17.200 Nicotine dependence, unspecified, uncomplicated
CPT/HCPCS: 36415; 51798; 80048; 99282; 99283

== ENCOUNTER 2021-09-13 08:00 | Outpatient (CLI) | payer BC ==
[2021-09-13 21:21] LABS: BASOPHILS # (AUTO) 0.1 10^3/uL (0.0-0.1); BASOPHILS % (AUTO) 0.6 %; EOSINOPHILS # (AUTO) 0.1 10^3/uL (0.0-0.7); HCT - HEMATOCRIT 40.1 % (42.0-52.0); HGB - HEMOGLOBIN 13.5 g/dL (14.0-18.0); LYMPHOCYTES # (AUTO) 2.1 10^3/uL (1.5-3.5); LYMPHOCYTES % (AUTO) 24.2 %; MEAN CORPUSCULAR HEMOGLOBIN 33.1 pg (27.0-31.0); MEAN CORPUSCULAR HGB CONC 33.7 g/dL (32.0-36.0); MEAN CORPUSCULAR VOLUME 98.3 fL (80.0-94.0); MEAN PLATELET VOLUME 10.1 fL (7.4-11.4); MONOCYTES # (AUTO) 0.8 10^3/uL (0.0-1.0); MONOCYTES % (AUTO) 9.3 %; NEUTROPHILS # (AUTO) 5.6 10^3/uL (1.5-6.6); NEUTROPHILS % (AUTO) 64.4 %; PLT - PLATELET COUNT 177 10^3/uL (130-450); RED BLOOD COUNT 4.08 10^6/uL (4.70-6.10); RED CELL DISTRIBUTION WIDTH 13.6 % (12.0-15.0); WHITE BLOOD COUNT 8.6 x10^3/uL (4.8-10.8)
[2021-09-13 21:34] LABS: ALBUMIN 3.8 g/dL (3.2-5.5); ALBUMIN/GLOBULIN RATIO 1.3 (1.0-2.2); BILIRUBIN,TOTAL 0.8 mg/dL (0.2-1.0); CALCIUM 9.3 mg/dL (8.5-10.3); CREATININE 1.1 mg/dL (0.6-1.2); TOTAL PROTEIN 6.7 g/dL (6.7-8.2)
== END 2021-09-13 23:59 | disposition home or self-care (01) ==
LOC: LAB.N 08:00
PROVIDERS: ATTEND Physician Assistant
DX: R30.0 Dysuria (principal)
CPT/HCPCS: 36415; 80053; 85025; 87086

== ENCOUNTER 2021-10-25 12:15 | Outpatient (CLI) | payer BC ==
--- NOTE | 2021-10-25 16:18 | XRAY Report ---
PROCEDURE: Lumbar Spine 2 View INDICATIONS: ATRAUMATIC BACK PX TECHNIQUE: 3 views of the lumbar spine were acquired. COMPARISON: Lumbar spine radiographs 08/26/2014. FINDINGS: Bones: 5 [id number] vertebrae are present. Mild left convexity curvature centered at L3-L4. 3 mm retrolisthesis L2 on L3, likely degenerative. No vertebral body compression fractures. No suspici ous bony lesions. Moderate multilevel disc height loss and endplate spurring. Facet arthropathy also demonstrated at L5-S1, likely also to a lesser extent at L4-5. Degenerative changes appear mildly in creased since 2014. Soft tissues: Overlying bowel gas pattern is normal. Vascular calcifications are present. IMPRESSION: 1. No acute fracture of the lumbar spine visualized radiographically. If symptoms persist, follow-up radiographs and/or MRI may be helpful for further evaluation. 2. Moderate multilevel degenerative changes of the lumbar spine, mildly worsened since 2014. Reviewed by: Kalen Nicole MD on 10/25/2021 4:16 PM PDT Approved by: Kalen Nicole MD on 10/25/2021 4:16 PM PDT Station ID: [id number]
== END 2021-10-25 12:16 | disposition home or self-care (01) ==
LOC: DI.N 12:15
PROVIDERS: ATTEND Physician Assistant Medical
DX: M47.816 Spondylosis without myelopathy or radiculopathy, lumbar region (principal); M47.817 Spondylosis without myelopathy or radiculopathy, lumbosacral region; M43.16 Spondylolisthesis, lumbar region; M51.36 Other intervertebral disc degeneration, lumbar region

== ENCOUNTER 2021-10-28 08:01 | Emergency (ER) | payer BC ==
[2021-10-28 08:22] VITALS: BP 138/76
[2021-10-28] MEDS ORDERED: DEXAMETHASONE 10 MG/ML VIAL IM STA (09:04)
[2021-10-28] MEDS ORDERED: KETOROLAC 60 MG/2 ML VIAL IM STA (09:04)
--- NOTE | 2021-10-28 09:09 | ED Physician Documentation ---
History of Present Illness - Stated complaint Stated Complaint: R LEG PAIN - Chief complaint Chief Complaint: Back Pain - History obtained from History obtained from: Patient - Additonal information Additional information: The patient comes to the emergency department chief complaint of pain shooting from his buttock down to his lower leg. This is on the right. The patient states that this has been going on for a long time but its been worse over the last couple of weeks. He denies any direct injury. No increase in use of the area. No numbness, tingling, or weakness. No loss of bowel or bladder control. The patient has not seen his primary care physician recently. He was at the urgent care/walk-in a few weeks ago where he had x-rays done that showed degenerative disease in his lumbar spine. He was recently prescribed low-dose methylprednisolone at 4 mg/day and diclofenac. He just started taking these a couple of days ago and states that have not really seem to have helped. He s tates the pain seemed worse last night and that is why he is here. He is hoping that we can do a "physical maneuver" to get rid of the issue, or that we can give him a direct injection into the area. He states he has had MRI many years ago but does not remember exactly when. No other complaints at this time. Review of Systems Ten Systems: 10 systems reviewed and negative Constitutional: reports: Reviewed and negative Eyes: reports: Reviewed and negative Ears: reports: Reviewed and negative Nose: reports: Reviewed and negative Throat: reports: Reviewed and negative Cardiac: reports: Reviewed and negative Respiratory: reports: Reviewed and negative GI: reports: Reviewed and negative : reports: Reviewed and negative Skin: reports: Reviewed and negative Musculoskeletal: reports: Extremity pain Neurologic: reports: Reviewed and negative Psychiatric: reports: Reviewed and negative Endocrine: reports: Reviewed and negative Immunocompromised: reports: Reviewed and negative PD PAST MEDICAL HISTORY - Past Medical History Cardiovascular: High cholesterol, Angina Respiratory: None Endocrine/Autoimmune: HyPOthyroidism GI: None : Frequency HEENT: Glaucoma Psych: Depression Musculoskeletal: None Derm: None - Past Surgical History Past Surgical History: No General: Colonoscopy - Present Medications Home Medications: Ambulatory Orders Medication Instructions Recorded Confirmed Latanoprost 0.005% Ophth Drops 1 drops OPTH QPM 03/19/14 08/25/21 [Xalatan Ophth Drops] Levothyroxine [Synthroid] 112 mcg PO QDAC 03/19/14 08/25/21 Metoprolol Succinate 25 mg PO DAILY 03/19/14 08/25/21 Multivit-Min/FA/Lycopene/Lut 1 each PO DAILY 03/19/14 08/28/19 [Centrum Silver Tablet] Timolol 0.25% Ophth Drops 1 drops OPTH BID 03/19/14 08/25/21 [Timoptic 0.25% Ophth Drops] Finasteride [Proscar] 1 tablet ORAL DAILY 08/25/21 08/25/21 Rosuvastatin Calcium [Crestor] 1 tablet ORAL DAILY 08/25/21 08/25/21 Tamsulosin HCl [Flomax] 1 tablet ORAL DAILY 08/25/21 08/25/21 Tamsulosin [Flomax] 0.4 mg PO DAILY #30 cap 08/25/21 Gabapentin [Neurontin] 300 mg PO TID #21 cap 10/28/21 HYDROcod/ACETAM 5/325 [Henderson 5/325] 1 - 2 tablet PO Q6H PRN #14 tablet 10/28/21 predniSONE [Deltasone] 10 mg PO [id number] #42 tab 10/28/21 - Allergies Allergies/Adverse Reactions: Allergies Allergy/AdvReac Type Severity Reaction Status Date / Time No Known Drug Allergies Allergy Verified 09/11/21 10:35 - Social History Does the pt smoke?: No Smoking Status: Never smoker PD ED PE NORMAL - Vitals Vital signs reviewed: Yes - General General: Alert and oriented X 3, No acute distress, Well developed/nourished - HEENT HEENT: Atraumatic, PERRL, EOMI, Moist mucous membranes - Neck Neck: Supple, no meningeal sign - Cardiac Cardiac: Strong equal pulses - Respiratory Respiratory: No respiratory distress - Derm Derm: Normal color, Warm and dry, No rash - Extremities Extremities: No deformity, Other (Right sciatic joint tenderness without te nderness of the leg itself. Full range of motion right leg.) - Neuro Neuro: Alert and oriented X 3, stonecutter assistant 2-12 intact, No motor deficit, No sensory deficit, Normal speech - Psych Psych: Normal mood, Normal affect Results - Vitals Vitals: Vital Signs - 24 hr 10/28/21 08:10 Temperature 37.0 C Heart Rate 56 L Respiratory 19 Rate Blood Pressure 138/76 H O2 Saturation 98 Oxygen O2 Source Room air PD MEDICAL DECISION MAKING - ED course Complexity details: considered differential, d/w patient ED course: I discussed with the patient that we do not have a "maneuver" to cure his sciatica. We also do not do direct steroid injections, though I have encouraged him to follow-up with his primary care physician regarding this, which he should have been doing all along. As far as symptomatic relief, the patient was placed on a very low-dose of methylprednisolone, and I will increase the dosage for him. We have also discussed sciatica stretches and back exercises to help decompress the sciatic nerve. I have discussed with the patient that he can talk to his primary doctor about getting set up with physical therapy to assist with this as well, and that MRI would be the best diagnostic test to further evaluate the area, though the patient does not meet any criteria to have this done emergently today. We have discussed the usual indications for return. Departure - Departure Disposition: Home, Self Care Clinical Impression: Sciatica Qualifiers: Laterality: right Qualified Code(s): M54.31 - Sciatica, right side Condition: Stable Instructions: ED Sciatica Prescriptions: predniSONE [Deltasone] 10 mg PO [id number] #42 tab Gabapentin [Neurontin] 300 mg PO TID #21 cap HYDROcod/ACETAM 5/325 [Henderson 5/325] 1 - 2 tablet PO Q6H PRN #14 tablet PRN Reason: Pain Comments: There is no evidence of an emergent cause of the pain today. You are tender at the sciatic joint, which is most likely the source of the pain that is shooting down your leg. It sounds as though you have a chronic issue with your sciatica, but that this is escalated lately, as can sometimes happen. You can talk with your primary care physician about getting a cortisone injection in the area, but for now, please take the prednisone taper that we have prescribed today. This is a higher dose than was prescribed to a couple of days ago, and should be more effective. You may continue to take the anti-inflammatory that you are already prescribed, as well. You have been prescribed a nerve signaling modulator, gabapentin, as well as a pain medication, hydrocodone. The prescriptions for all of these have been sent to [facility] in [place]. The medication is to help with the immediate pain, but to Help improve the overall condition that is underlying and prevent this from getting so bad again, no one pharmacological interventions are the best. These include stretching, back exercises, and sometimes physical therapy. Additionally, massage can be helpful as well. You should talk to your doctor about being referred for physical therapy and also, talk to your doctor about getting an MRI to look further at the area. Some times, a good chiropractor can be helpful for conditions like this, as well.
== END 2021-10-28 09:38 | disposition home or self-care (01) ==
LOC: ED 08:01
DX: M54.31 Sciatica, right side (principal)
CPT/HCPCS: 96372; 99282; 99283

== ENCOUNTER 2021-10-29 15:05 | Emergency (ER) | payer BC, MEDICARE ==
[2021-10-29 15:24] VITALS: BP 118/58
[2021-10-29] MEDS ORDERED: KETOROLAC 60 MG/2 ML VIAL IM STA (17:27)
--- NOTE | 2021-10-29 17:30 | ED Physician Documentation ---
History of Present Illness - Stated complaint Stated Complaint: R LEG/HIP PX - Chief complaint Chief Complaint: Back Pain - Additonal information Additional information: 76-year-old male return to the emergency department for evaluation of right leg pain. He was seen by my colleague yesterday. At that time there was a presumptive diagnosis of sciatica. The patient reports that he has had pain mainly in his right leg for a long time but is gotten acutely worse over the last few weeks. Been no falls or trauma. No saddle anesthesia, loss of bowel or bladder function. When seen yesterday in the emergency department he received a dose of Decadron as well as Toradol. He was discharged with a prescription for hydrocodone prednisone and gabapentin. Despite these medications he is not pain-free. He would like another shot of the medicine we gave him yesterday. He did have an x-ray completed on 25 October that showed degenerative disc disease. Review of Systems Constitutional: denies: Fever, Chills Eyes: reports: Reviewed and negative Throat: reports: Reviewed and negative Cardiac: reports: Reviewed and negative Respiratory: reports: Reviewed and negative Musculoskeletal: reports: Back pain, Extremity pain Neurologic: reports: Reviewed and negative Psychiatric: reports: Reviewed and negative PD PAST MEDICAL HISTORY - Past Medical History Cardiovascular: High cholesterol, Angina Respiratory: None Endocrine/Autoimmune: HyPOthyroidism GI: None : Frequency HEENT: Glaucoma Psych: Depression Musculoskeletal: None Derm: None - Past Surgical History Past Surgical History: No General: Colonoscopy - Present Medications Home Medications: Ambulatory Orders Medication Instructions Recorded Confirmed Latanoprost 0.005% Ophth Drops 1 drops OPTH QPM 03/19/14 08/25/21 [Xalatan Ophth Drops] Levothyroxine [Synthroid] 112 mcg PO QDAC 03/19/14 08/25/21 Metoprolol Succinate 25 mg PO DAILY 03/19/14 08/25/21 Multivit-Min/FA/Lycopene/Lut 1 each PO DAILY 03/19/14 08/28/19 [Centrum Silver Tablet] Timolol 0.25% Ophth Drops 1 drops OPTH BID 03/19/14 08/25/21 [Timoptic 0.25% Ophth Drops] Finasteride [Proscar] 1 tablet ORAL DAILY 08/25/21 08/25/21 Rosuvastatin Calcium [Crestor] 1 tablet ORAL DAILY 08/25/21 08/25/21 Tamsulosin HCl [Flomax] 1 tablet ORAL DAILY 08/25/21 08/25/21 Tamsulosin [Flomax] 0.4 mg PO DAILY #30 cap 08/25/21 Gabapentin [Neurontin] 300 mg PO TID #21 cap 10/28/21 HYDROcod/ACETAM 5/325 [[place] 5/325] 1 - 2 tablet PO Q6H PRN #14 tablet 10/28/21 predniSONE [Deltasone] 10 mg PO [id number] #42 tab 10/28/21 - Allergies Allergies/Adverse Reactions: Allergies Allergy/AdvReac Type Severity Reaction Status Date / Time No Known Drug Allergies Allergy Verified 10/29/21 15:24 - Social History Does the pt smoke?: No Smoking Status: Never smoker PD ED PE EXPANDED - General General: Alert, No acute distress, Well developed/nourished - Back Back: Normal exam, Soft tissue tenderness (Mild right buttock tenderness with deep palpation only), Other (Normal full forward range of motion of the lumbar spine. Normal gait. No pain elicited with hip abduction or internal rotation. No laxity of the knee. Normal flexion extension of the knee. No rashes noted). No: Vertebral tenderness - Neuro Neuro: Alert and Oriented X 3, CNII-XII intact - GCS Eye Opening: Spontaneous Motor: Obeys Commands Verbal: Oriented Total: 15 Results - Vitals Vitals: Vital Signs - 24 hr 10/29/21 15:20 Temperature 36.5 C Heart Rate 60 Respiratory 16 Rate Blood Pressure 118/58 L O2 Saturation 96 Oxygen O2 Source Room air PD MEDICAL DECISION MAKING - ED course Complexity details: considered differential, d/w patient ED course: 76-year-old male returns the emergency department for evaluation of right leg pain. The differential considered today include sciatica, meralgia paresthetica, knee pain with radiation upwards. He did have an x-ray of his lumbar spine completed 4 days ago that showed degenerative disc disease. No lytic lesions were noted. Given the lack of saddle anesthesia, loss of bowel or bladder function and a very very reassuring exam with a normal gait and very minimal tenderness elicited, we deferred doing CT imaging today. I am encouraging the patient to continue his course of steroids, the gabapentin as well as the hydrocodone. He is encouraged very close follow-up with RUDOLPH Odonnell. He likely would benefit from physical therapy and if then not improved consideration of an MRI. We did redosed him today with a dose of Toradol which she was thankful for Departure - Departure Disposition: Home, Self Care Clinical Impression: Right leg pain Condition: Stable Record reviewed to determine appropriate education?: Yes Follow-Up: Paulette Odonnell PA-C [Primary Care Provider] - Comments: I encourage you to call your primary care office on Monday to continue to arrange follow-up. I believe that with an additional few days of time you will find that your pain is beginning to improve. Continue the full course of steroids as well as the gabapentin. Continue to use the hydrocodone sparingly. I would encourage you to use the sciatica stretching exercises. You would likely benefit from referral to physical therapy for longer-term evaluation of your back pain. However if the treatment today as well as physical therapy does not make things better you may benefit then from an MRI. However this typically needs to be arranged through your primary care provider. If at any point you have numbness in your genital area, lose control of your bowel or bladder function, develop sudden leg weakness then please return immediately to the ER for second evaluation
== END 2021-10-29 17:49 | disposition home or self-care (01) ==
LOC: ED 15:05
DX: M79.604 Pain in right leg (principal)
CPT/HCPCS: 96372; 99282; 99283

== ENCOUNTER 2021-10-30 16:13 | Emergency (ER) | payer BC, MEDICARE ==
--- NOTE | 2021-10-30 16:30 | ED Physician Documentation ---
PD HPI LOWER EXT INJURY - Stated complaint Stated Complaint: R LEG PX - Chief complaint Chief Complaint: Ext Problem - History obtained from History obtained from: Patient - History of Present Illness PD HPI LOW EXT INJURY LOCATION: Right (pain right low back at SI area radiating down posterior thigh to laterallower leg. No weakness nor numbness. no incontinence nor perineal numbness.) Type of injury: Twist (had done some lifting. No impact injury.). No: Fall Timing - onset: How many days ago (several days ago had onset of low back pain right side with movement.) Timing - duration: Days Timing - details: Gradual onset, Still present (seems to be worsening each day.) Improved by: Rest Worsened by: Moving, Palpating (right lower back) Recently seen: Emergency Dept (seen twice in ER with Rx of oral steroid, muscle relaxant, hydrocodone, and gabapentin, but only had meds for past 2 days. Still hurting today so back to ER> Had gotten Toradol IM yesterday that helped well and requesting that.) Review of Systems Constitutional: denies: Fever, Chills Nose: denies: Rhinorrhea / runny nose, Congestion Throat: denies: Sore throat Respiratory: denies: Cough Skin: denies: Rash Neurologic: denies: Focal weakness, Numbness PD PAST MEDICAL HISTORY - Past Medical History Cardiovascular: High cholesterol, Angina Respiratory: None Endocrine/Autoimmune: HyPOthyroidism GI: None : Frequency HEENT: Glaucoma Psych: Depression Musculoskeletal: None Derm: None - Past Surgical History Past Surgical History: No General: Colonoscopy - Present Medications Home Medications: Ambulatory Orders Medication Instructions Recorded Confirmed Latanoprost 0.005% Ophth Drops 1 drops OPTH QPM 03/19/14 08/25/21 [Xalatan Ophth Drops] Levothyroxine [Synthroid] 112 mcg PO QDAC 03/19/14 08/25/21 Metoprolol Succinate 25 mg PO DAILY 03/19/14 08/25/21 Multivit-Min/FA/Lycopene/Lut 1 each PO DAILY 03/19/14 08/28/19 [Centrum Silver Tablet] Timolol 0.25% Ophth Drops 1 drops OPTH BID 03/19/14 08/25/21 [Timoptic 0.25% Ophth Drops] Finasteride [Proscar] 1 tablet ORAL DAILY 08/25/21 08/25/21 Rosuvastatin Calcium [Crestor] 1 tablet ORAL DAILY 08/25/21 08/25/21 Tamsulosin HCl [Flomax] 1 tablet ORAL DAILY 08/25/21 08/25/21 Tamsulosin [Flomax] 0.4 mg PO DAILY #30 cap 08/25/21 Gabapentin [Neurontin] 300 mg PO TID #21 cap 10/28/21 HYDROcod/ACETAM 5/325 [[place] 5/325] 1 - 2 tablet PO Q6H PRN #14 tablet 10/28/21 predniSONE [Deltasone] 10 mg PO [id number] #42 tab 10/28/21 - Allergies Allergies/Adverse Reactions: Allergies Allergy/AdvReac Type Severity Reaction Status Date / Time No Known Drug Allergies Allergy Verified 10/30/21 16:22 - Social History Does the pt smoke?: No Smoking Status: Never smoker PD ED PE NORMAL - Vitals Vital signs reviewed: Yes - General General: Alert and oriented X 3, Well developed/nourished, Other (seems uncom fortable with low back movement. ) - Back Back: No CVA TTP, No spinal TTP, Other (tender right SI area. No rash nor sores. Hip movement causes pain with internal rotation mostly. ) - Derm Derm: Normal color, Warm and dry - Neuro Neuro: Alert and oriented X 3, No motor deficit, No sensory deficit, Normal speech, Other (normal patellar reflexes. ) Results - Vitals Vitals: Vital Signs - 24 hr 10/30/21 10/30/21 16:18 17:47 Temperature 36.5 C Heart Rate 60 57 L Respiratory 16 16 Rate Blood Pressure 132/72 H 127/77 O2 Saturation 97 95 Oxygen O2 Source Room air PD MEDICAL DECISION MAKING - ED course Complexity details: reviewed old records, considered differential (seems possibly SI rather than spine per se. He has trigger point type area upper SI right. DId kenalog and lido injection at that site without problems. Given Toradol as well. ), d/w patient Departure - Departure Disposition: 01 Home, Self Care Clinical Impression: Sacroiliitis Low back pain Qualifiers: Chronicity: acute Back pain laterality: right Sciatica presence: with sciatica Sciatica laterality: sciatica of right side Qualified Code(s): M54.41 - Lumbago with sciatica, right side Condition: Stable Record reviewed to determine appropriate education?: Yes Instructions: ED Sacroiliitis Follow-Up: Paulette Odonnell PA-C [Primary Care Provider] - Comments: Continue with your previously prescribed medications. You did have some tenderness at the right sacroiliac area and this can give you the pain and nerve irritation symptoms that you are having. I did do an injection at the upper sacroiliac (SI joint) area with "cortisone" (actually triamcinolone with lidocaine but the common references cortisone). Follow-up with your primary care for potential physical therapy or other treatments if not improving over the next few days. Discharge Date/Time: 10/30/21 17:45
[2021-10-30] MEDS ORDERED: KETOROLAC 30 MG/ML VIAL IM STA (16:56)
[2021-10-30] MEDS ORDERED: TRIAMCINOLONE 40 MG/ML VIAL IM STA (16:57)
[2021-10-30] MEDS ORDERED: BUPIVACAINE 0.25%-EPI 1:200000 PF 30 ML VIAL SUBQ ONE (16:57)
[2021-10-30] MEDS: LIDOCAINE 2% 10 ML MDV SUBQ ONE ×2 (17:15→17:21)
[2021-10-30] MEDS ORDERED: LIDOCAINE 2%-EPI 1:100000 20 ML MDV SUBQ ONE (17:32)
[2021-10-30] MEDS ORDERED: LIDOCAINE 2%-EPI 1:100000 20 ML MDV ONE (17:34)
[2021-10-30 17:47] VITALS: BP 127/77
== END 2021-10-30 17:45 | disposition home or self-care (01) ==
LOC: ED 16:13
DX: M46.1 Sacroiliitis, not elsewhere classified (principal); M54.41 Lumbago with sciatica, right side
CPT/HCPCS: 96372; 99283

== ENCOUNTER 2021-12-13 16:44 | Outpatient (CLI) | payer BC ==
[2021-12-13 21:17] LABS: CHOL/HDL RATIO 3.1 (<5.0); CHOLESTEROL 216 mg/dL; HDL CHOLESTEROL 69 mg/dL; LDL CHOLESTEROL,CALCULATED 128 mg/dL; LDL/HDL RATIO 1.9 (<3.6); TRIGLYCERIDES 93 mg/dL; VLDL CHOLESTEROL 19 mg/dL
== END 2021-12-13 16:45 | disposition home or self-care (01) ==
LOC: LAB.N 16:44
PROVIDERS: ATTEND Physician Assistant Medical
DX: E78.5 Hyperlipidemia, unspecified (principal)
CPT/HCPCS: 36415; 80061; 83721

== ENCOUNTER 2021-12-15 10:40 | Outpatient (CLI) | payer BC ==
--- NOTE | 2021-12-15 14:58 | MRI Report ---
PROCEDURE: MRI and lumbar spine without contrast INDICATIONS: LOW BACK PAIN TECHNIQUE: Noncontrast sagittal T1 spin echo and T2 fast echo, sagittal STIR, axial T1 and T2 fast spin echo thr ough the lumbar spine. In cases with scoliosis, additional coronal T2 fast spin echo may be performe d. COMPARISON: None. FINDINGS: Image quality: Excellent. Alignment and Curvature: Convex left lumbar scoliosis present. Bone Marrow: Marrow is of normal overall signal. No acute vertebral body compression fractures. Spinal Cord: Conus medullaris terminates at the L1 level. Visualized cord demonstrates normal signa l and size. Paraspinous Soft Tissues: Bilateral simple renal cysts present. T12-L1: Normal in appearance. L1-L2: Normal in appearance. L2-L3: Disc space narrowing and circumferential disc bulge present. There is a superimposed right subarticular disc protrusion filling the right lateral recess displacing the descending nerve. Modera te right and no left foraminal stenosis. Mild central stenosis. L3-L4: Disc space narrowing with circumferential disc bulge and hypertrophic facet joints present. Mild central and mild bilateral foraminal stenosis present. L4-L5: Circumferential disc bulge and hypertrophic facet joints results in moderate central stenosi s. Moderate bilateral foraminal stenosis L5-S1: Disc space narrowing and circumferential disc bulge with mild central stenosis. Moderate rachelle ateral foraminal stenosis greater on the left hip. IMPRESSION: Focal right subarticular disc protrusion fills the right lateral recess displacing the descending ner ve root at L2-3. Additional multilevel degenerative disc disease and arthropathy results in varying degrees of central and foraminal stenosis including moderate central stenosis at L4-5 Reviewed by: Jus Honeycutt MD on 12/15/2021 1:57 PM ADELA Approved by: Jus Honeycutt MD on 12/15/2021 1:57 PM AKSHAILESH Station ID: [id number]
== END 2021-12-15 10:41 | disposition home or self-care (01) ==
LOC: DI 10:40
PROVIDERS: ATTEND Family Medicine
DX: M51.16 Intervertebral disc disorders with radiculopathy, lumbar region (principal); M47.26 Other spondylosis with radiculopathy, lumbar region; M48.061 Spinal stenosis, lumbar region without neurogenic claudication; M51.17 Intervertebral disc disorders with radiculopathy, lumbosacral region; M48.07 Spinal stenosis, lumbosacral region

== ENCOUNTER 2022-06-03 14:22 | Outpatient (CLI) | payer BC ==
--- NOTE | 2022-06-03 16:14 | XRAY Report ---
PROCEDURE: Wrist 3 View RT INDICATIONS: OTHER SPECIFIED SPRAIN OF RIGHT WRIST TECHNIQUE: 3 views of the wrist were acquired. COMPARISON: None FINDINGS: Bones: No fractures or dislocations. No suspicious bony lesions. Mild radiocarpal as well as first CMC degenerative narrowing. Soft tissues: No suspicious soft tissue calcifications. IMPRESSION: Arthritic changes as above. No visualized acute fracture or dislocation. However, occult injury cannot be excluded. Recommend alejandro rt interval imaging follow-up in 7-10 days as clinically indicated for additional evaluation. Reviewed by: Dilma Soto MD on 06/03/2022 4:13 PM PST Approved by: Dilma Soto MD on 06/03/2022 4:13 PM PST Station ID: [id number]
== END 2022-06-03 14:23 | disposition home or self-care (01) ==
LOC: DI 14:22
PROVIDERS: ATTEND Physician Assistant Medical
DX: M19.031 Primary osteoarthritis, right wrist (principal); M18.11 Unilateral primary osteoarthritis of first carpometacarpal joint, right hand

== ENCOUNTER 2022-12-20 09:43 | Outpatient (CLI) | payer BC ==
[2022-12-20 13:07] LABS: ALBUMIN 4.1 g/dL (3.2-5.5); ALBUMIN/GLOBULIN RATIO 1.6 (1.0-2.2); ALKALINE PHOSPHATASE 52 IU/L (42-121); ALT ALANINE AMINOTRANSFERASE 20 IU/L (10-60); AST ASPARTATE AMINOTRANSFERASE 22 IU/L (10-42); BILIRUBIN,TOTAL 0.6 mg/dL (0.2-1.0); BUN - BLOOD UREA NITROGEN 17 mg/dL (6-20); CALCIUM 9.9 mg/dL (8.5-10.3); CARBON DIOXIDE - CO2 28 mmol/L (21-32); CHLORIDE 106 mmol/L (101-111); CHOL/HDL RATIO 2.5 (<5.0); CHOLESTEROL 145 mg/dL; CREATININE 1.1 mg/dL (0.6-1.3); GFR - MDRD 65 (>89); GLUCOSE 152 mg/dL (74-104); HDL CHOLESTEROL 58 mg/dL; LDL CHOLESTEROL,CALCULATED 70 mg/dL; LDL/HDL RATIO 1.2 (<3.6); SODIUM 139 mmol/L (135-145); TOTAL PROTEIN 6.6 g/dL (6.4-8.9); TRIGLYCERIDES 87 mg/dL (48-352); VLDL CHOLESTEROL 17 mg/dL
[2022-12-20 13:18] LABS: THYROID STIMULATING HORMONE 24.62 uIU/mL (0.34-5.60)
[2022-12-20 13:32] LABS: ESTIMATED AVERAGE GLUCOSE 117 mg/dL (70-100); HEMOGLOBIN A1c% 5.7 % (4.27-6.07)
== END 2022-12-20 09:44 | disposition home or self-care (01) ==
LOC: LAB.N 09:43
PROVIDERS: ATTEND Physician Assistant Medical
DX: E78.5 Hyperlipidemia, unspecified (principal); R41.3 Other amnesia; R73.03 Prediabetes; E03.9 Hypothyroidism, unspecified
CPT/HCPCS: 36415; 80053; 80061; 82607; 83036; 83721; 84439; 84443

== ENCOUNTER 2023-01-24 09:56 | Outpatient (CLI) | payer BC ==
[2023-01-24 12:54] LABS: ALBUMIN/GLOBULIN RATIO 1.7 (1.0-2.2); ALKALINE PHOSPHATASE 54 IU/L (42-121); ALT ALANINE AMINOTRANSFERASE 16 IU/L (10-60); AST ASPARTATE AMINOTRANSFERASE 18 IU/L (10-42); BILIRUBIN,TOTAL 0.6 mg/dL (0.2-1.0); BUN - BLOOD UREA NITROGEN 19 mg/dL (6-20); CALCIUM 9.8 mg/dL (8.5-10.3); CARBON DIOXIDE - CO2 29 mmol/L (21-32); CHLORIDE 107 mmol/L (101-111); CHOL/HDL RATIO 2.4 (<5.0); CHOLESTEROL 123 mg/dL; GFR - MDRD 73 (>89); GLUCOSE 148 mg/dL (74-104); HDL CHOLESTEROL 51 mg/dL; LDL CHOLESTEROL,CALCULATED 59 mg/dL; LDL/HDL RATIO 1.2 (<3.6); SODIUM 140 mmol/L (135-145); TOTAL PROTEIN 6.3 g/dL (6.4-8.9); TRIGLYCERIDES 67 mg/dL (48-352); VLDL CHOLESTEROL 13 mg/dL
[2023-01-24 12:59] LABS: ESTIMATED AVERAGE GLUCOSE 117 mg/dL (70-100); HEMOGLOBIN A1c% 5.7 % (4.27-6.07)
[2023-01-24 13:10] LABS: THYROID STIMULATING HORMONE 0.14 uIU/mL (0.34-5.60)
== END 2023-01-24 09:57 | disposition home or self-care (01) ==
LOC: LAB.N 09:56
PROVIDERS: ATTEND Physician Assistant Medical
DX: E78.5 Hyperlipidemia, unspecified (principal); R41.3 Other amnesia; R73.03 Prediabetes; E03.9 Hypothyroidism, unspecified
CPT/HCPCS: 36415; 80053; 80061; 82607; 83036; 83721; 84439; 84443

== ENCOUNTER 2023-08-09 07:11 | Outpatient (CLI) | payer BC ==
[2023-08-09 12:25] LABS: THYROID STIMULATING HORMONE 0.01 uIU/mL (0.34-5.60)
[2023-08-09 12:26] LABS: ALBUMIN 4.1 g/dL (3.2-5.5); ALBUMIN/GLOBULIN RATIO 1.8 (1.0-2.2); ALKALINE PHOSPHATASE 58 IU/L (42-121); ALT ALANINE AMINOTRANSFERASE 14 IU/L (10-60); AST ASPARTATE AMINOTRANSFERASE 17 IU/L (10-42); BILIRUBIN,TOTAL 0.7 mg/dL (0.2-1.0); BUN - BLOOD UREA NITROGEN 21 mg/dL (6-20); CALCIUM 10.1 mg/dL (8.5-10.3); CARBON DIOXIDE - CO2 28 mmol/L (21-32); CHLORIDE 106 mmol/L (101-111); CHOL/HDL RATIO 3.4 (<5.0); CHOLESTEROL 201 mg/dL; CREATININE 0.9 mg/dL (0.6-1.3); GFR - MDRD 82 (>89); GLUCOSE 120 mg/dL (74-104); HDL CHOLESTEROL 59 mg/dL; LDL CHOLESTEROL,CALCULATED 120 mg/dL; POTASSIUM 3.9 mmol/L (3.5-4.5); SODIUM 138 mmol/L (135-145); TOTAL PROTEIN 6.4 g/dL (6.4-8.9); TRIGLYCERIDES 110 mg/dL (48-352); VLDL CHOLESTEROL 22 mg/dL
== END 2023-08-09 07:12 | disposition home or self-care (01) ==
LOC: LAB.N 07:11
PROVIDERS: ATTEND Physician Assistant Medical
DX: E78.5 Hyperlipidemia, unspecified (principal); E03.9 Hypothyroidism, unspecified
CPT/HCPCS: 36415; 80053; 80061; 83721; 84439; 84443

== ENCOUNTER 2023-10-17 08:51 | Outpatient (CLI) | payer BC ==
--- NOTE | 2023-10-17 12:21 | Ultrasound Report ---
PROCEDURE: Renal Ltd (Retroperitoneal Ltd INDICATIONS: TOBACCO USE, AAA TECHNIQUE: Real-time scanning was performed of the retroperitoneal organs, with image documentation. COMPARISON: Aorta screening 02/15/2022. FINDINGS: Proximal aorta measures 2.8 x 2.9 cm Mid aorta measures 2.2 x 2.0 cm Distal aorta measures 4.3 x 5.3 cm with mural thrombus present Right common iliac artery measures 1.1 x 1.4 cm Left common iliac artery measures 1.5 x 1.9 cm IMPRESSION: 1. A 5.3 cm distal abdominal aortic aneurysm, increased in size since prior study when he was measuri ng 4.7 cm. RECOMMEND URGENT ENDOVASCULAR OR SURGICAL CONSULTATION. 2. 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
--- NOTE | 2023-10-17 15:46 | CT Report ---
PROCEDURE: Lung Cancer Screen INDICATIONS: TOBACCO USE, AAA TECHNIQUE: A CT scan of the chest was performed. Intravenous contrast media was not administered. Images were re corded and evaluated at appropriate window settings. Reformats: axial MIP of the chest, coronal and s agittal. For radiation dose reduction, the following was used: automated exposure control, adjustment of mA and/or kV according to patient size. COMPARISON: 09/15/2020. FINDINGS: Image quality: Excellent. Prior cancer history: None Lungs and pleura: No pleural effusions. No pneumothorax. Mild emphysematous change. A solitary pulmo nary nodule is stable. 1. Stable 3 x 5 mm pulmonary nodule, right middle lobe, current image 66/4 and previous image 193/4. No new or increasing pulmonary nodules. Mediastinum: Heart size is normal. No pericardial effusion. Severe coronary artery calcifications.. N o large vessel abnormality. Moderate proximal left subclavian artery calcified stenosis No mediastina l adenopathy by size criteria. Chest wall and lower neck: Thyroid is unremarkable. No axillary or supraclavicular adenopathy by size . Bones: No aggressive osseous abnormality. Upper Abdomen: Unremarkable. IMPRESSION: Stable 3 x 5 mm pulmonary nodule, right middle lobe, consistent with benign pulmonary nod ule. Severe coronary artery calcifications. Moderate proximal left subclavian calcified stenosis. Lung RAD: 1 - Negative. Recommendation: Continue annual screening in 12 Months with LDCT Non-Lung Significant Findings: Coronary Arterial Calcification - Moderate or Severe. Proximal left slaughter bclavian artery stenosis. Reviewed by: Rahul Temple MD on 10/17/2023 3:45 PM PDT Approved by: Rahul Temple MD on 10/17/2023 3:45 PM PDT Station ID: [id number]
== END 2023-10-17 08:52 | disposition home or self-care (01) ==
LOC: DI 08:51
PROVIDERS: ATTEND Physician Assistant Medical
DX: Z12.2 Encounter for screening for malignant neoplasm of respiratory organs (principal); F17.200 Nicotine dependence, unspecified, uncomplicated; I71.40 Abdominal aortic aneurysm, without rupture, unspecified; I72.3 Aneurysm of iliac artery; R91.1 Solitary pulmonary nodule; I25.10 Atherosclerotic heart disease of native coronary artery without angina pectoris; I70.90 Unspecified atherosclerosis

== ENCOUNTER 2023-10-17 09:27 | Outpatient (CLI) | payer BC | END 2023-10-17 09:28 | disposition home or self-care (01) | LOC: DI 09:27 | PROVIDERS: ATTEND Physician Assistant Medical | DX: I25.10 Atherosclerotic heart disease of native coronary artery without angina pectoris (principal); R00.1 Bradycardia, unspecified; I51.7 Cardiomegaly; I87.8 Other specified disorders of veins; Z12.2 Encounter for screening for malignant neoplasm of respiratory organs; F17.200 Nicotine dependence, unspecified, uncomplicated; I71.40 Abdominal aortic aneurysm, without rupture, unspecified; I72.3 Aneurysm of iliac artery; R91.1 Solitary pulmonary nodule; I70.90 Unspecified atherosclerosis | CPT/HCPCS: 93307 ==